=== PATIENT | female | born 1975 | race African-American/Black ===

== ENCOUNTER 2021-02-02 09:15 | Emergency (ER) | payer OTHER ==
[2021-02-02 09:29] VITALS: BP 129/94; PULSE 88; TEMP 98.3; BMI 27.4
[2021-02-02] MEDS ORDERED: METOCLOPRAMIDE HCL INJECTION 10 MG/2 ML VIAL IVPB ONE (09:29)
[2021-02-02] MEDS ORDERED: LACTATED RINGERS SOLUTION 1,000 ML/1,000 ML INFUS.BAG IV STA (09:29)
[2021-02-02] MEDS ORDERED: ACETAMINOPHEN 1000 MG/100 ML VIAL (NON FORMULARY) IVPB ONE (09:29)
[2021-02-02] MEDS ORDERED: METOCLOPRAMIDE HCL INJECTION 10 MG/2 ML VIAL ONE (09:35)
[2021-02-02] MEDS ORDERED: ACETAMINOPHEN INJECTION 100 ML IVPB ONE (09:35)
[2021-02-02 10:12] LABS: RBC 4.72 M/mm3 (3.60-5.2)
[2021-02-02 10:19] LABS: ALBUMIN 4.4 g/dl (3.4-5.0); BILIRUBIN,TOTAL 1.1 mg/dl (0.2-1); CREATININE 0.9 mg/dl (0.55-1.3); HEMATOCRIT 41.5 % (32.4-45.2); HEMOGLOBIN 14.2 GM/dl (10.7-15.3); MCH 30.2 pg (25.7-33.7); MCHC 34.3 g/dl (32.0-36.0); PLATELET COUNT 184 K/MM3 (134-434); RDW 12.6 % (11.6-15.6); TOT PROT 7.2 g/dl (6.4-8.2); WHITE BLOOD COUNT 2.9 K/mm3 (4.0-10.8)
[2021-02-02 10:29] LABS: EPITHELIAL CELLS MODERATE /hpf
[2021-02-02 11:10] LABS: PLATELET ESTIMATE ADEQUATE
[2021-02-02] MEDS ORDERED: KETOROLAC TROMETHAMINE 30 MG/1 ML VIAL IVPUSH ONE (11:37)
[2021-02-02] MEDS ORDERED: KETOROLAC TROMETHAMINE 30 MG/1 ML VIAL ONE (11:41)
== END 2021-02-02 11:50 | disposition home or self-care (01) ==
LOC: FER 09:15
PROC: 3E033NZ Introduction of Analgesics, Hypnotics, Sedatives into Peripheral Vein, Percutaneous Approach (ICD-10-PCS; principal; 2021-02-02)
PROC: 3E033GC Introduction of Other Therapeutic Substance into Peripheral Vein, Percutaneous Approach (ICD-10-PCS; 2021-02-02)
PROC: 3E0337Z Introduction of Electrolytic and Water Balance Substance into Peripheral Vein, Percutaneous Approach (ICD-10-PCS; 2021-02-02)
PROC: 3E0333Z Introduction of Anti-inflammatory into Peripheral Vein, Percutaneous Approach (ICD-10-PCS; 2021-02-02)
DX: R51.9 Headache, unspecified (principal)
CPT/HCPCS: 36415; 70450-TC; 80053; 81003; 81015; 83735; 84703; 85025; 87086; 99285-25; C9803; J0131; U0003; U0005